=== PATIENT | male | born 1945 | race Caucasian/White ===

== ENCOUNTER 2016-04-13 13:28 | Emergency (ER) | payer OTHER ==
--- NOTE | 2016-04-13 13:44 | EDPHY ---
H & P Time Seen by Provider: 04/13/16 13:41 Source: Patient - Medical/Surgical History Hx Asthma: No Constitutional: Initial Vital Signs Temperature (C) 36.8 C 04/13/16 13:44 Heart Rate 86 04/13/16 13:44 Respiratory Rate 18 04/13/16 13:44 Blood Pressure 137/101 H 04/13/16 13:44 O2 Sat (%) 92 04/13/16 13:44 O2 Delivery Mode Room Air Allergies/Adverse Reactions: Sulfa (Sulfonamide Antibiotics) Allergy (Verified 04/13/16 13:44) Home Medications: Medication Instructions Recorded NK [No Known Home Meds] 04/13/16 Medical Decision Making ED Course/Re-evaluation: CHIEF COMPLAINT: Gasoline inhalation HISTORY OF PRESENT ILLNESS: The patient is a 71 year old male, here with multiple symptoms that he patient believes is an effect of gasoline exposure. The patient states his apartment smelled of gasoline for the past 6 days. His vehicle maintenance supervisor came to assess the situation and found an open container of gasoline in his garage. The patient has noticed symptoms of shortness of breath , cough, headache, dizziness, and feels unstable. He had 2 episodes of vomiting and some diarrhea. The patient also notes a skin rash. REVIEW OF SYSTEMS: A 10 point review of systems was performed and is negative with the exception of the elements mentioned in the history of present illness. PHYSICAL EXAM: HR, BP, O2 Sat, RR. Temp noted General Appearance: Alert, well hydrated, appropriate, and non-toxic appearing. Head: Atraumatic without scalp tenderness or obvious injury Eyes: Pupils equal, round, reactive to light and accommodation, EOMI, no trauma , no injection. Ears: Clear bilaterally, no perforation, normal landmarks Nose: Atraumatic, no rhinorrhea, clear. Throat: There is no erythema or exudates, no lesions, normal tonsils, mucus membranes moist. Neck: Supple, 2+ carotid upstroke, nontender, no lymphadenopathy. Respiratory: No retractions, no distress, no wheezes, and no accessory muscle use. Lungs are clear to auscultation bilaterally. Cardiovascular: Regular rate and rhythm, no murmurs, rubs, or gallops. Bilateral carotid, radial, dorsalis pedis, and posterior tibial pulses intact. Good capillary refill all extremities. Gastrointestinal: Abdomen is soft, nontender, non-distended, no masses, no rebound, no guarding, no peritoneal signs. Musculoskeletal: Normal active ROM of all extremities, atraumatic. Neurological: Alert, appropriate, and interactive. The patient has normal DTRs and non-focal cranial nerves, motor, sensory, and cerebellar exam. Skin: No rashes, good turgor, no nodules on palpation. Past medical history: Denies Past surgical history: Denies Family history: Noncontributory Social history: Lives in [place] DIFFERENTIAL DIAGNOSIS: The differential diagnosis for the patient's nausea and vomiting included but was not limited to gastroenteritis, gastritis, appendicitis, and medication side effect. MEDICAL DECISION MAKING: The patient is a 71 year old male here with multiple symptoms that he attributes to gas exposure. The patient's apartment has been smelling of gasoline for the past week. The vehicle maintenance supervisor found an open container of gas in the garage and aired out the garage. Since smelling the gasoline the patient has noticed symptoms of shortness of breath, cough, headache, dizziness, and feels unstable. He had 2 episodes of vomiting and some diarrhea. Labs are normal. O2 saturation in the 90s. Blood gas is normal. I suspect the patient subsequently has a viral disease that is unrelated to the gasoline exposure. I will have the case management associate speak with the patient to discuss places to stay while his apartment smells of gas. - Data Points Laboratory Results: Laboratory Results 04/13/16 14:13 04/13/16 14:13 04/13/16 14:13 WBC 6.11 10^3/uL (3.80-9.50) RBC 5.50 10^6/uL (4.40-6.38) Hgb 17.8 H g/dL (13.7-17.5) Hct 49.0 % (40.0-51.0) MCV 89.1 fL (81.5-99.8) MCH 32.4 pg (27.9-34.1) MCHC 36.3 g/dL (32.4-36.7) RDW 12.1 % (11.5-15.2) Plt Count 165 10^3/uL (150-400) MPV 9.8 fL (8.7-11.7) Neut % (Auto) 54.6 % (39.3-74.2) Lymph % (Auto) 33.4 % (15.0-45.0) Parmer % (Auto) 7.9 % (4.5-13.0) Eos % (Auto) 2.5 % (0.6-7.6) Baso % (Auto) 0.5 % (0.3-1.7) Nucleat RBC Rel Count 0.0 % (0.0-0.2) Absolute Neuts (auto) 3.34 10^3/uL (1.70-6.50) Absolute Lymphs (auto) 2.04 10^3/uL (1.00-3.00) Absolute Monos (auto) 0.48 10^3/uL (0.30-0.80) Absolute Eos (auto) 0.15 10^3/uL (0.03-0.40) Absolute Basos (auto) 0.03 10^3/uL (0.02-0.10) Absolute Nucleated RBC 0.00 10^3/uL (0-0.01) Immature Gran % 1.1 % (0.0-1.1) Immature Gran # 0.07 10^3/uL (0.00-0.10) Carboxyhemoglobin 1.8 H % (0-1.5) Sodium 140 mEq/L (134-144) Potassium 4.5 mEq/L (3.5-5.2) Chloride 105 mEq/L (97-110) Carbon Dioxide 23 mEq/l (22-31) Anion Gap 12 mEq/L (8-16) BUN 15 mg/dL (7-23) Creatinine 0.9 mg/dL (0.7-1.3) Estimated GFR > 60 Glucose 101 H mg/dL (70-100) Calcium 9.6 mg/dL (8.5-10.4) Departure - Departure Disposition: Home, Routine, Self-Care Clinical Impression: Viral bronchitis, Exposure to environmental hazard Condition: Good Instructions: Acute Bronchitis (ED) Additional Instructions: Followup with your primary care physician if you continue to have symptoms. Referrals: Tracie Esparza MD [Primary Care Provider] - As per Instructions Report Scribed for: Ameya Stephenson Report Scribed by: Delphine Baldwin Date of Report: 04/13/16 Time of Report: 14:43
[2016-04-13 14:19] LABS: % IMMATURE GRANULYOCYTES 1.1 % (0.0-1.1); ABSOLUTE IMMATURE GRANULOCYTES 0.07 10^3/uL (0.00-0.10); ADD DIFF? NO; ADD MORPH? NO; ADD SCAN? NO; ATYPICAL LYMPHOCYTE FLAG 10 (0-99); FRAGMENT RBC FLAG 0 (0-99); HEMOGLOBIN 17.8 g/dL (13.7-17.5); LEFT SHIFT FLG 10 (0-99); LIPEMIA HEMOLYSIS FLAG 90 (0-99); MEAN CELL HEMOGLOBIN 32.4 pg (27.9-34.1); MEAN CELL HEMOGLOBIN CONCENTR. 36.3 g/dL (32.4-36.7); MEAN CELL VOLUME 89.1 fL (81.5-99.8); MEAN PLATELET VOLUME 9.8 fL (8.7-11.7); PLATELET CLUMPS FLAG 0 (0-99); PLATELET COUNT 165 10^3/uL (150-400); RED CELL DISTRIBUTION WIDTH 12.1 % (11.5-15.2)
[2016-04-13 14:35] LABS: ANION GAP 12 mEq/L (8-16); CALCIUM 9.6 mg/dL (8.5-10.4); CARBON DIOXIDE 23 mEq/l (22-31); CHLORIDE 105 mEq/L (97-110); CREATININE 0.9 mg/dL (0.7-1.3); GLOMERULAR FILTRATION RATE > 60; GLUCOSE 101 mg/dL (70-100); POTASSIUM 4.5 mEq/L (3.5-5.2); SODIUM 140 mEq/L (134-144)
[2016-04-13 15:13] VITALS: BP 122/80; PULSE 70; RESP 14; TEMP 98.4; O2SAT 94
== END 2016-04-13 15:12 | disposition home or self-care (01) ==
DX: J20.8 Acute bronchitis due to other specified organisms (principal); Z77.118 Contact with and (suspected) exposure to other environmental pollution

== ENCOUNTER 2017-03-30 12:28 | Emergency (ER) | payer OTHER ==
[2017-03-30] MEDS ORDERED: NS 1,000 ML IV ONE ×2 (13:16→14:18)
[2017-03-30] MEDS ORDERED: ONDANSETRON 4 MG/2 ML VIAL IVP ONE (13:43)
[2017-03-30] MEDS ORDERED: KETOROLAC 15 MG/1 ML SDV IVP ONE (13:43)
--- NOTE | 2017-03-30 13:46 | EDPHY ---
H & P Time Seen by Provider: 03/30/17 13:23 HPI/ROS: CHIEF COMPLAINT: Cough, nausea, fatigue HISTORY OF PRESENT ILLNESS: 71-year-old male previously healthy presents with a one-week history of cough, nausea and fatigue. 1 week ago, he developed diffuse myalgias, associated with a dry cough. Since then he has been mainly lying in bed because of excessive fatigue. Associated with nausea, no vomiting. Decreased oral intake. Also associated with upper abdominal discomfort, now better. No known fever. No flu vaccination this year. REVIEW OF SYSTEMS: Constitutional: No fever, no chills Eyes: No visual changes ENT: No sore throat Respiratory: no shortness of breath Cardiac: No chest pain Genitourinary: no dysuria Skin: No rash Neurological: Generalized weakness, no headache Psychiatric: No depression Past Medical/Surgical History: Denies Social History: Lives in own home Smoking Status: Never smoked Physical Exam: General Appearance: Alert, pleasant, nontoxic-appearing, talkative Eyes: Pupils equal and round, no conjunctival pallor ENT, Mouth: Mucous membranes dry Neck: Normal inspection Respiratory: Lungs are clear to auscultation, no wheezing Cardiovascular: Regular rate and rhythm Gastrointestinal: Abdomen is soft and nontender Neurological: A&O, nonfocal exam Skin: Warm and dry, no rash Extremities: Normal inspection Psychiatric: Mood and affect normal Constitutional: Initial Vital Signs Temperature (C) 36.5 C 03/30/17 12:32 Heart Rate 98 03/30/17 12:32 Respiratory Rate 18 03/30/17 12:32 Blood Pressure 142/94 H 03/30/17 12:32 O2 Sat (%) 92 03/30/17 12:32 O2 Delivery Mode Room Air Allergies/Adverse Reactions: Sulfa (Sulfonamide Antibiotics) Allergy (Verified 03/30/17 12:30) Home Medications: Medication Instructions Recorded Hydrocodone/APAP 5/325 [[place] 1 tab PO Q4H PRN #10 tab 03/30/17 5/325 (*)] Ondansetron Odt [Zofran Odt 4 mg 4 mg PO Q4 PRN #6 tab 03/30/17 (*)] Medical Decision Making - Diagnostics Imaging Results: Chest x-ray independently reviewed by me reveals no acute disease. ED Course/Re-evaluation: This patient presents with influenza-like symptoms and dehydration. IV normal saline 2 L, Zofran 4 mg IV and Toradol 15 mg IV given. Influenza swab and chest x-ray ordered. Chest x-ray reveals no evidence of pneumonia. Influenza A positive. Results discussed with the patient. Tamiflu is not indicated, given 5 days of symptoms. Abdomen remains soft and nontender. He is nontoxic-appearing and is able to tolerate oral fluids well. Feels much better after IVF and meds. He would like to go home and I feel this is a safe plan for the patient. Differential Diagnosis: Differential diagnosis includes pyelonephritis, cholecystitis, appendicitis, influenza, cellulitis, pneumonia, abscess, meningitis. - Data Points Laboratory Results: Laboratory Results 03/30/17 13:19 03/30/17 13:19 Medications Given: Discontinued Medications Sodium Chloride (Ns) 1,000 mls @ 0 mls/hr IV ONCE ONE PRN Reason: Wide Open Stop: 03/30/17 13:17 Last Admin: 03/30/17 13:37 Dose: 1,000 mls Sodium Chloride (Ns) 1,000 mls @ 0 mls/hr IV ONCE ONE; Wide Open PRN Reason: Protocol Stop: 03/30/17 14:19 Last Admin: 03/30/17 14:28 Dose: 1,000 mls Ketorolac Tromethamine (Toradol) 15 mg IVP EDNOW ONE Stop: 03/30/17 13:44 Last Admin: 03/30/17 14:28 Dose: 15 mg Ondansetron HCl (Zofran) 4 mg IVP EDNOW ONE Stop: 03/30/17 13:44 Last Admin: 03/30/17 14:28 Dose: 4 mg Departure - Departure Disposition: Home, Routine, Self-Care Clinical Impression: Influenza A Condition: Good Instructions: Influenza (ED) Additional Instructions: Take Tylenol 650 mg every 4 hr as needed for fever and achiness. Return for worsening symptoms or any concerns. Referrals: Tracie Esparza MD [Primary Care Provider] - As per Instructions Prescriptions: Hydrocodone/APAP 5/325 [[place] 5/325 (*)] 1 tab PO Q4H PRN #10 tab PRN Reason: cough Ondansetron Odt [Zofran Odt 4 mg (*)] 4 mg PO Q4 PRN #6 tab PRN Reason: Nausea
[2017-03-30 15:28] VITALS: BP 138/88; PULSE 90; RESP 16; TEMP 98.4; O2SAT 97
== END 2017-03-30 15:28 | disposition home or self-care (01) ==
DX: J11.1 Influenza due to unidentified influenza virus with other respiratory manifestations (principal); E86.9 Volume depletion, unspecified
CPT/HCPCS: 96374; J1885; J2405

== ENCOUNTER 2017-07-22 03:38 | Emergency (ER) | payer OTHER ==
[2017-07-22] MEDS ORDERED: TDAP ADULT 0.5 ML INJ (BOOSTRIX) IM ONE (06:34)
--- NOTE | 2017-07-22 06:39 | EDPHY ---
H & P Stated Complaint: intoxication fall abrasion to back of head Time Seen by Provider: 07/22/17 04:28 HPI/ROS: HPI The patient presents with a fall which occurred just prior to arrival. Apparently he was out drinking alcohol tonight. 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 He did not lose consciousness he says. Neighbors found him outside with a head wound and bleeding and they called 911. The patient denies any headache, nausea, vomiting , dizziness, vision changes, numbness or weakness in his arms or legs. He says he has full recall of the event.. REVIEW OF SYSTEMS Constitutional: No fever, no chills. Eyes: No discharge. ENT: No sore throat. Cardiovascular: No chest pain, no palpitations. Respiratory: No cough, no shortness of breath. Gastrointestinal: No abdominal pain, no vomiting. Genitourinary: No hematuria. Musculoskeletal: No back pain. Skin: No rashes. Neurological: No headache. PMHx: Prior orthopedic surgeries Soc Hx: Alcohol use, housed PHYSICAL General Appearance: Alert, no distress Eyes: Pupils equal and round no pallor or injection ENT, Mouth: Mucous membranes moist Head: There is a 2 cm scalp laceration to the left posterior occiput Respiratory: There are no retractions, lungs are clear to auscultation Cardiovascular: Regular rate and rhythm Gastrointestinal: Abdomen is soft and non-tender, no masses, bowel sounds normal Neurological: A&O, cranial nerves 2 through 12 intact, 5/5 strength in his upper and lower extremities Skin: Warm and dry, no rashes Musculoskeletal: Neck is supple non tender Extremities: symmetrical, full range of motion Psychiatric: Patient is oriented X 3, there is no agitation Source: Patient, EMS Exam Limitations: Intoxication - Personal History Current Tetanus/Diphtheria Vaccine: Unsure Current Tetanus Diphtheria and Acellular Pertussis (TDAP): Unsure - Medical/Surgical History Hx Asthma: No Hx Chronic Respiratory Disease: No Hx Diabetes: No Hx Cardiac Disease: No Hx Renal Disease: No Hx Cirrhosis: No Hx Alcoholism: No Hx HIV/AIDS: No Hx Splenectomy or Spleen Trauma: No Other PMH: ORTHO SURG - Social History Smoking Status: Never smoked Constitutional: Initial Vital Signs Temperature (C) 36.6 C 07/22/17 03:56 Heart Rate 100 07/22/17 03:56 Respiratory Rate 18 07/22/17 03:56 Blood Pressure 141/92 H 07/22/17 03:56 O2 Sat (%) 92 07/22/17 03:56 O2 Delivery Mode Nasal Cannula O2 (L/minute) 2 Allergies/Adverse Reactions: Sulfa (Sulfonamide Antibiotics) Allergy (Verified 07/22/17 03:55) Home Medications: Medication Instructions Recorded NK [No Known Home Meds] 07/22/17 Medical Decision Making Procedures: LACERATION REPAIR Procedure: Laceration repair. Verbal consent was obtained from the patient. The linear 2 cm laceration on the left posterior occiput was not anesthetized. The wound was scrubbed, draped and explored to its base with a gloved finger. There were no deep structures involved. . The wound was repaired with 2 robert. The wound repair was simple. The procedure was performed by myself. Differential Diagnosis: This is a 72-year-old male who is brought in by ambulance after a fall while intoxicated, hitting his posterior occiput on the ground. He has full recall of the event. The patient does not have a headache, vision change, behavioral change though does appear intoxicated. He is not vomiting. He has a normal neurologic evaluation. Because of his age, I recommended CT scan of his head to evaluate for acute intracranial hemorrhage. He declines this as he is very concerned about the cost. I plan to observe him in the emergency department. We will repair his scalp laceration here. In the emergency department, patient was observed for several hours and became more awake and alert. He had no focal neurologic deficits. His scalp laceration was repaired with robert. He continued to decline CT scan with concern about cost. I explained to him that we cannot rule out intracranial hemorrhage which can be life-threatening without this. He is in agreement with this and is aware of the risks involved of not performing the test. Once he is able to ambulate safely, he will be discharged home. Differential diagnoses considered include concussion, scalp laceration, intracranial hemorrhage. - Data Points Medications Given: Discontinued Medications Diphtheria/Tetanus/Acell Pertussis (Boostrix) 0.5 ml IM .ONCE ONE Stop: 07/22/17 06:35 Last Admin: 07/22/17 06:41 Dose: 0.5 ml Departure - Departure Disposition: Home, Routine, Self-Care Clinical Impression: Fall Qualifiers: Encounter type: initial encounter Qualified Code(s): W19.XXXA - Unspecified fall, initial encounter Scalp laceration Qualifiers: Encounter type: initial encounter Qualified Code(s): S01.01XA - Laceration without foreign body of scalp, initial encounter Alcohol intoxication Qualifiers: Complication of substance-induced condition: with delirium Qualified Code(s): F10.921 - Alcohol use, unspecified with intoxication delirium Condition: Good Instructions: Staple Care (ED) Additional Instructions: Please return to the emergency department in 10 days to have your robert removed. If you develop any worsening headache, nausea, vomiting, vision changes I do recommend that you return to the emergency room to get the CT scan of your head that was recommended. Otherwise he can come back in 10 days. Referrals: Tracie Esparza MD [Primary Care Provider] - As per Instructions
[2017-07-22 06:46] VITALS: BP 106/80
== END 2017-07-22 09:16 | disposition home or self-care (01) ==
LOC: EDUNIT#
PROC: 0HQ0XZZ Repair Scalp Skin, External Approach (ICD-10-PCS; principal; 2017-07-22)
DX: S01.01XA Laceration without foreign body of scalp, initial encounter (principal); F10.921 Alcohol use, unspecified with intoxication delirium; Z23 Encounter for immunization; W22.8XXA Striking against or struck by other objects, initial encounter; Y92.009 Unspecified place in unspecified non-institutional (private) residence as the place of occurrence of the external cause; Y99.8 Other external cause status; Y93.89 Activity, other specified